=== PATIENT | female | born 1955 ===

== ENCOUNTER 2021-02-24 05:45 | Day surgery (SDC) | payer OTHER ==
[~2021-02-24 05:45] MED LIST: EZETIMIBE-SIMV1 EAC1 PO; NORVASC2.5 M1 PO; SYMBICORT 16010.2 GM IH; SYNTHROID50 MCG PO; VITAL-D RX TAB1 EACH PO
== END 2021-02-24 17:30 | disposition home or self-care (01) ==
LOC: CIR.AMB 05:45
PROVIDERS: ATTEND Colon & Rectal Surgery
DX: K64.4 Residual hemorrhoidal skin tags (principal); N81.6 Rectocele; K64.8 Other hemorrhoids; Z20.822 Contact with and (suspected) exposure to COVID-19